=== PATIENT | male | born 1960 | race African-American/Black ===

== ENCOUNTER 2020-12-29 13:39 | Inpatient (IN) | payer SELFPAY ==
[~2020-12-29] VITALS: Ht 185.4 cm; Wt 72.6 kg
[2020-12-29] MEDS ORDERED: TETANUS, DIPHTHERIA, PERTUSSIS VAC/PF 0.5ML (>7YR OLD) IM ONE (14:45)
[2020-12-29 15:34] LABS: HEMATOCRIT. 39.3 % (42.0-52.0); HEMOGLOBIN. 12.9 g/dL (14.0-18.0); MEAN CORPUSCULAR HEMOGLOBIN 31.7 pg (28.0-32.0); MEAN CORPUSCULAR VOLUME 96.7 fL (80.0-94.0); MEAN PLATELET VOLUME 8.7 fl (7.4-10.4); PLATELET 155 x1000/uL (130-400); RED BLOOD CELL COUNT 4.07 mill/uL (4.7-6.1); RED CELL DISTRIBUTION WIDTH 13.7 % (11.6-14.6)
[2020-12-29 15:37] LABS: CHLORIDE 109 mEq/L (98-107)
[2020-12-29 17:45] LABS: PLATELET ESTIMATE NORMAL
[2020-12-29 20:49] LABS: *BENZODIAZEPINES SCREEN URINE NEGATIVE (NEGATIVE)
[2020-12-29 20:50] LABS: *AMPHETAMINES SCREEN URINE NEGATIVE (NEGATIVE); *BARBITURATES SCREEN URINE NEGATIVE (NEGATIVE); *COCAINE SCREEN URINE PRESUMTIVE POSITIVE (NEGATIVE); CANNABINOID URINE SCREEN PRESUMTIVE POSITIVE (NEGATIVE); METHADONE URINE SCREEN NEGATIVE (NEGATIVE); OPIATES URINE SCREEN NEGATIVE (NEGATIVE); PHENCYCLIDINE URINE SCREEN NEGATIVE (NEGATIVE)
[2020-12-30 08:30] VITALS: BP 132/80
[2020-12-30] MEDS ORDERED: ONDANSETRON HCL 4MG/2ML INJ IV PRN (09:30)
[2020-12-30] MEDS ORDERED: IPRATROPIUM/ALBUTEROL 0.5-3(2.5)MG/3ML NEB HHN PRN (09:30)
[2020-12-30] MEDS ORDERED: HYDROCODONE/ACETAMINOPHEN 5/325MG TABLET PO PRN (09:30)
[2020-12-30] MEDS ORDERED: MAGNESIUM/ALUMINUM HYDROXIDE/SIMETHICONE 30ML UDC PO PRN (09:30)
[2020-12-30] MEDS ORDERED: DEXTROSE 50% WATER 50ML SYRINGE IV PRN ×2 (09:30)
[2020-12-30] MEDS ORDERED: CLONIDINE 0.1MG TABLET PO PRN (09:30)
[2020-12-30] MEDS ORDERED: ACETAMINOPHEN 325MG TABLET PO PRN (09:30)
[2020-12-30] MEDS ORDERED: DOCUSATE SODIUM 100MG CAPSULE PO PRN (09:30)
[2020-12-30] MEDS: ENOXAPARIN 40MG/0.4ML SYR SUBCUT SCH (10:30)
[2020-12-30 11:21] VITALS: BP 142/79
[2020-12-30 12:00] VITALS: BP 128/78
[2020-12-30] MEDS: BLOOD SUGAR DIAGNOSTIC STRIP TEST SCH ×2 (12:20→21:25)
[2020-12-30] MEDS: INSULIN LISPRO 100 UNITS/ML SUBCUT SCH ×2 (12:50→21:00)
[2020-12-30 16:00] VITALS: BP 130/84
[2020-12-30 20:00] VITALS: BP_SYST 137
[2020-12-31] VITALS: BP 121/73
[2020-12-31 04:00] VITALS: BP 140/78
[2020-12-31] MEDS: BLOOD SUGAR DIAGNOSTIC STRIP TEST SCH ×3 (05:49→16:37)
[2020-12-31 06:47] LABS: BASOPHILS % 0.9 % (0.0-2.0); EOSINOPHILS % 2.4 % (0.0-5.0); HEMATOCRIT. 42.5 % (42.0-52.0); HEMOGLOBIN. 14.4 g/dL (14.0-18.0); LYMPHOCYTES % 22.2 % (20.0-50.0); MEAN CORPUSCULAR HEMOGLOBIN 32.2 pg (28.0-32.0); MEAN PLATELET VOLUME 9.6 fl (7.4-10.4); MONOCYTES % 14.7 % (2.0-8.0); NEUTROPHILS % 59.8 % (40.0-76.0); PLATELET 191 x1000/uL (130-400); RED BLOOD CELL COUNT 4.47 mill/uL (4.7-6.1); RED CELL DISTRIBUTION WIDTH 13.5 % (11.6-14.6)
[2020-12-31 07:00] LABS: CHLORIDE 107 mEq/L (98-107)
[2020-12-31 07:06] LABS: PHOSPHORUS 3.5 mg/dL (2.5-4.9)
[2020-12-31 07:08] LABS: LDL CHOLESTEROL 88 mg/dL (5-100)
[2020-12-31 07:16] LABS: HDL CHOLESTEROL 52 mg/dL (40-59)
[2020-12-31] MEDS ORDERED: OMEPRAZOLE 20MG CAPSULE EXTENDED RELEASE PO SCH (07:20)
[2020-12-31] MEDS: INSULIN LISPRO 100 UNITS/ML SUBCUT SCH ×3 (07:50→16:37)
[2020-12-31 08:00] VITALS: BP 117/85
[2020-12-31] MEDS: ENOXAPARIN 40MG/0.4ML SYR SUBCUT SCH (10:30)
[2020-12-31 12:00] VITALS: BP 121/86
[2020-12-31 16:00] VITALS: BP 128/87
[2020-12-31 17:49] VITALS: BP 128/87
== END 2020-12-31 20:10 | disposition home or self-care (01) | DRG 48 ==
LOC: ER 13:53 → 6WST 22:34 → EDBEDREQTM 22:35 → EDBEDREQ 22:35 → ENRESERV 12-30 07:32
PROVIDERS: ADMIT Internal Medicine; ATTEND Internal Medicine
DX: G90.8 Other disorders of autonomic nervous system (principal); D64.9 Anemia, unspecified; F12.90 Cannabis use, unspecified, uncomplicated; F14.90 Cocaine use, unspecified, uncomplicated; S01.412A Laceration without foreign body of left cheek and temporomandibular area, initial encounter; W18.39XA Other fall on same level, initial encounter; R73.9 Hyperglycemia, unspecified; I10 Essential (primary) hypertension; S01.511A Laceration without foreign body of lip, initial encounter; Z17.0 Estrogen receptor positive status [ER+]; Z56.0 Unemployment, unspecified; Z71.51 Drug abuse counseling and surveillance of drug abuser; Y93.89 Activity, other specified; Y92.89 Other specified places as the place of occurrence of the external cause; Y99.8 Other external cause status
CPT/HCPCS: 36415; 70486; 70551; 71045; 80048; 80061; 80305; 80320; 82962; 83036; 83735; 84100; 84443; 84484; 85025; 90715; 93005; 93306; 93880; 93970; 97162; 97165; 99285; J1650; G0480

== ENCOUNTER 2025-01-15 17:17 | Inpatient (IN) | payer MEDICAID ==
[~2025-01-15] VITALS: Ht 188 cm; Wt 76.7 kg
[2025-01-15 18:37] LABS: BASOPHILS % 0.7 % (0.0-2.0); EOSINOPHILS % 2.7 % (0.0-5.0); HEMATOCRIT. 35.1 % (42.0-52.0); HEMOGLOBIN. 11.6 g/dL (14.0-18.0); LYMPHOCYTES % 19.6 % (20.0-50.0); MEAN CORPUSCULAR HEMOGLOBIN 31.5 pg (28.0-32.0); MEAN CORPUSCULAR HGB CONC 33.2 g/dL (31.0-37.0); MEAN PLATELET VOLUME 8.9 fl (7.4-10.4); PLATELET 247 x1000/uL (130-400); RED BLOOD CELL COUNT 3.69 mill/uL (4.7-6.1); RED CELL DISTRIBUTION WIDTH 13.2 % (11.6-14.6)
[2025-01-15 18:45] LABS: CHLORIDE 104 mEq/L (98-107); POTASSIUM 3.8 mEq/L (3.5-5.1); SODIUM 139 mEq/L (136-145)
[2025-01-15 18:46] LABS: CALCIUM 8.7 mg/dL (8.7-10.4); CARBON DIOXIDE 29 mEq/L (21-32); PROTHROMBIN TIME 10.5 sec (9.6-11.0)
[2025-01-15 18:51] LABS: GLUCOSE 113 mg/dL (70-105); UREA NITROGEN BLOOD 12 mg/dL (9-23)
[2025-01-15] MEDS: MORPHINE SULFATE 4 MG/ML INJ (FOR IV/IM USE) IV ONE (19:11)
[2025-01-15] MEDS: PIPERACILLIN/TAZO 3.375G/50ML 50 ML IV ONE (19:12)
[2025-01-15] MEDS: SODIUM CHLORIDE 0.9% (SEPSIS BOLUS) IV ONE (19:12)
[2025-01-15] MEDS: VANCOMYCIN 1G PREMIX 200 ML IV ONE (19:52)
[2025-01-15] MEDS ORDERED: ONDANSETRON HCL 4MG/2ML INJ IV PRN (22:00)
[2025-01-15] MEDS ORDERED: DEXTROSE 50% WATER 50ML SYRINGE IV PRN (22:00)
[2025-01-15] MEDS ORDERED: ACETAMINOPHEN 325MG TABLET PO PRN (22:00)
[2025-01-16] VITALS: BP 127/79; PULSE 69; RESP 20; TEMP 36.2; O2SAT 99
[2025-01-16] MEDS ORDERED: VANCOMYCIN 1G PREMIX 200 ML IV SCH
[2025-01-16 00:48] LABS: IRON 26 ug/dL (65-175)
[2025-01-16 00:50] LABS: ALANINE AMINOTRANSFERASE 12 IU/L (10-49); ALBUMIN 3.6 g/dL (3.2-4.8); ASPARTATE AMINOTRANSFERASE 17 IU/L (<34); BILIRUBIN DIRECT < 0.1 mg/dL (<=3.0); BILIRUBIN TOTAL 0.3 mg/dL (0.1-1.0); TOTAL IRON BINDING CAPACITY 347 ug/dl (250-425)
[2025-01-16 00:53] LABS: FERRITIN 82 ng/mL (22-322); VITAMIN B12 SERUM 479 pg/mL (211-911)
[2025-01-16 00:58] VITALS: BP 127/79; PULSE 69; RESP 20; TEMP 36.3
[2025-01-16] MEDS: PIPERACILLIN/TAZO 3.375G/50ML 50 ML IV SCH (02:20)
[2025-01-16] MEDS: VANCOMYCIN 1G PREMIX 200 ML IV SCH (02:20)
[2025-01-16 04:00] VITALS: BP 53/79; PULSE 73; RESP 20; TEMP 36.2; O2SAT 99
[2025-01-16 07:54] LABS: CLARITY URINE CLEAR (CLEAR); COLOR URINE YELLOW (YELLOW); GLUCOSE URINE NEGATIVE (NEGATIVE); KETONES URINE NEGATIVE (NEGATIVE); LEUKOCYTE ESTERASE URINE TRACE (NEGATIVE); NITRITE URINE NEGATIVE (NEGATIVE); OCCULT BLOOD URINE 1+ (NEGATIVE); PROTEIN URINE NEGATIVE (NEGATIVE); SPECIFIC GRAVITY URINE 1.007 (1.005-1.030)
[2025-01-16 08:04] LABS: BACTERIA URINE FEW; SQUAMOUS EPITHELIAL CELL URINE NONE SEEN /lpf (RARE/1+); WBC URINE 0-2 /hpf (0-2); YEAST URINE NONE SEEN
[2025-01-16 08:16] LABS: *AMPHETAMINES SCREEN URINE NEGATIVE (NEGATIVE); *BARBITURATES SCREEN URINE NEGATIVE (NEGATIVE); *BENZODIAZEPINES SCREEN URINE NEGATIVE (NEGATIVE)
[2025-01-16 08:17] LABS: *COCAINE SCREEN URINE PRESUMPTIVE POSITIVE (NEGATIVE); CANNABINOID URINE SCREEN NEGATIVE (NEGATIVE); ECSTASY MDMA SCREEN URINE NEGATIVE (NEGATIVE); METHADONE URINE SCREEN NEGATIVE (NEGATIVE); OPIATES URINE SCREEN PRESUMPTIVE POSITIVE (NEGATIVE); PHENCYCLIDINE URINE SCREEN PRESUMTIVE POSITIVE (NEGATIVE)
[2025-01-16 09:21] LABS: BASOPHILS % 0.8 % (0.0-2.0); EOSINOPHILS % 2.8 % (0.0-5.0); HEMATOCRIT. 35.9 % (42.0-52.0); HEMOGLOBIN. 11.9 g/dL (14.0-18.0); LYMPHOCYTES % 13.1 % (20.0-50.0); MEAN CORPUSCULAR HEMOGLOBIN 31.7 pg (28.0-32.0); MEAN CORPUSCULAR HGB CONC 33.1 g/dL (31.0-37.0); MEAN CORPUSCULAR VOLUME 95.8 fL (80.0-94.0); MEAN PLATELET VOLUME 9.6 fl (7.4-10.4); MONOCYTES % 10.7 % (2.0-8.0); NEUTROPHILS % 72.6 % (40.0-76.0); PLATELET 253 x1000/uL (130-400); RED BLOOD CELL COUNT 3.74 mill/uL (4.7-6.1); RED CELL DISTRIBUTION WIDTH 13.2 % (11.6-14.6); WHITE BLOOD COUNT 8.6 x1000/uL (4.5-11.0)
[2025-01-16] MEDS: PANTOPRAZOLE SODIUM 40 MG/VIAL IV SCH (09:23)
[2025-01-16 09:39] LABS: CARBON DIOXIDE 30 mEq/L (21-32); CHLORIDE 104 mEq/L (98-107); POTASSIUM 4.1 mEq/L (3.5-5.1); SODIUM 140 mEq/L (136-145)
[2025-01-16 09:40] LABS: CALCIUM 8.7 mg/dL (8.7-10.4)
[2025-01-16 09:44] LABS: GLUCOSE 114 mg/dL (70-105)
[2025-01-16 09:45] LABS: TRIGLYCERIDE 63 mg/dL (0-150); UREA NITROGEN BLOOD 8 mg/dL (9-23)
[2025-01-16 09:46] LABS: ALBUMIN 3.6 g/dL (3.2-4.8); CHOLESTEROL 136 mg/dL (<200); LDL CHOLESTEROL 90 mg/dL (5-100)
[2025-01-16 09:47] LABS: HDL CHOLESTEROL 32 mg/dL (>55)
[2025-01-16 09:51] LABS: THYROID STIMULATING HORMONE 0.89 uIU/mL (0.55-4.78)
[2025-01-16] MEDS ORDERED: LIDOCAINE HCL/EPINEPHRINE 1%-EPI 1:100,000 20ML VIAL INFIL SCH (11:15)
[2025-01-16] MEDS: SODIUM HYPOCHLORITE 0.125% 473ML SOLUTION TOP SCH (14:48)
[2025-01-16 20:00] VITALS: BP 128/80; PULSE 77; RESP 20; TEMP 36.4; O2SAT 96
[2025-01-17] VITALS: BP 117/54; PULSE 72; RESP 20; TEMP 36.4
[2025-01-17 04:00] VITALS: BP 132/73; PULSE 59; RESP 20; TEMP 36.6; O2SAT 95
[2025-01-17 07:14] LABS: CARBON DIOXIDE 28 mEq/L (21-32); CHLORIDE 106 mEq/L (98-107); POTASSIUM 3.9 mEq/L (3.5-5.1); SODIUM 141 mEq/L (136-145)
[2025-01-17 07:19] LABS: CREATININE 0.9 mg/dL (0.6-1.3); GLUCOSE 103 mg/dL (70-105)
[2025-01-17 07:20] LABS: UREA NITROGEN BLOOD 10 mg/dL (9-23)
[2025-01-17 08:00] VITALS: BP 135/72; PULSE 59; RESP 19; TEMP 36.4; O2SAT 96
[2025-01-17] MEDS: ENOXAPARIN 40MG/0.4ML SYR SUBCUT SCH (10:34)
[2025-01-17] MEDS: FERROUS SULFATE 300MG/5ML UDC PO SCH (10:34)
[2025-01-17 12:00] VITALS: BP 120/79; PULSE 83; RESP 20; TEMP 36.5; O2SAT 100
[2025-01-17 16:00] VITALS: BP 118/77; PULSE 68; RESP 18; TEMP 36.5; O2SAT 97
[2025-01-17] MEDS: ACETAMINOPHEN 325MG TABLET PO PRN (16:00)
[2025-01-17] MEDS: VANCOMYCIN 1.25GM/250ML IV SCH (18:30)
[2025-01-18 08:00] VITALS: BP 154/78; PULSE 59; RESP 18; TEMP 36.4; O2SAT 99
[2025-01-18 12:00] VITALS: BP 110/68; PULSE 113; RESP 20; TEMP 36.6; O2SAT 98
[2025-01-18 16:00] VITALS: BP 120/67; PULSE 100; RESP 20; TEMP 36.3; O2SAT 100
[2025-01-18] MEDS ORDERED: SULF1TAB48 PO (17:30)
[2025-01-19 03:17] LABS: CHLORIDE 105 mEq/L (98-107); POTASSIUM 3.6 mEq/L (3.5-5.1); SODIUM 139 mEq/L (136-145)
[2025-01-19 03:18] LABS: CARBON DIOXIDE 29 mEq/L (21-32)
[2025-01-19 03:19] LABS: CALCIUM 8.7 mg/dL (8.7-10.4)
[2025-01-19 03:23] LABS: CREATININE 1.2 mg/dL (0.6-1.3); GLUCOSE 113 mg/dL (70-105); UREA NITROGEN BLOOD 20 mg/dL (9-23)
[2025-01-19 04:00] VITALS: BP 130/72; PULSE 73; RESP 20; O2SAT 98
[2025-01-19 08:00] VITALS: BP 117/66; PULSE 76; RESP 18; TEMP 36.4; O2SAT 100
[2025-01-19 16:00] VITALS: BP 105/50; PULSE 69; RESP 20; TEMP 36.1; O2SAT 98
[2025-01-19] MEDS: VANCOMYCIN 1GM PMX (XELLIA) 200 ML IV SCH (18:00)
[2025-01-19 20:00] VITALS: BP 123/65; PULSE 62; RESP 20; TEMP 37.1; O2SAT 99
[2025-01-19] MEDS: SULFAMETHOXAZOLE/TRIMETHOPRIM 800/160MG TABLET PO SCH (23:00)
[2025-01-19 23:19] VITALS: BP 123/65; PULSE 62; TEMP 98.7; O2SAT 99
[2025-01-20] VITALS: BP 108/59; PULSE 87; RESP 19; TEMP 37; O2SAT 98
[2025-01-20] MEDS ORDERED: VANCOMYCIN 1G PREMIX 200 ML IV SCH (06:00)
[2025-01-20 08:00] VITALS: BP 115/65; PULSE 82; RESP 20; TEMP 36.7; O2SAT 98
[2025-01-20] MEDS: FAMOTIDINE 20MG TABLET PO SCH (09:44)
[2025-01-20 12:00] VITALS: BP 126/76; PULSE 76; RESP 18; TEMP 36.7; O2SAT 97
== END 2025-01-20 14:40 | disposition home or self-care (01) | DRG 720 ==
LOC: ER 17:17 → 6EST 20:50 → EDBEDREQTM 20:54 → EDBEDREQ 20:54 → ENRESERV 21:17
PROVIDERS: ADMIT Internal Medicine; ATTEND Internal Medicine
PROC: 0JB90ZZ Excision of Buttock Subcutaneous Tissue and Fascia, Open Approach (ICD-10-PCS; principal; 2025-01-16)
DX: A41.9 Sepsis, unspecified organism (principal); F14.90 Cocaine use, unspecified, uncomplicated; L02.31 Cutaneous abscess of buttock; F19.10 Other psychoactive substance abuse, uncomplicated; L03.317 Cellulitis of buttock; W57.XXXA Bitten or stung by nonvenomous insect and other nonvenomous arthropods, initial encounter; Z59.00 Homelessness unspecified; Z87.891 Personal history of nicotine dependence; Z79.899 Other long term (current) drug therapy; Y92.89 Other specified places as the place of occurrence of the external cause; Y93.89 Activity, other specified; Y99.8 Other external cause status
CPT/HCPCS: 36415; 71045; 74176; 80048; 80061; 80076; 80202; 80305; 81003; 82040; 82607; 82728; 82746; 83036; 83540; 83550; 83605; 84145; 84439; 84443; 85025; 87070; 87077; 87186; 96365; 96367; 96375; 99285; J1650; J2004; J2270; J2470; J2543; J3370; J7030

== ENCOUNTER 2025-03-31 08:54 | Inpatient (IN) | payer MEDICAID ==
[~2025-03-31] VITALS: Ht 188 cm; Wt 76.7 kg
[~2025-03-31 08:54] MED LIST: SULF1TAB48 PO
[2025-03-31 08:57] VITALS: O2SAT 99
[2025-03-31] MEDS ORDERED: PANTOPRAZOLE 80 MG in SODIUM CHLORIDE 0.9% 100 ML IV ONE (09:15)
[2025-03-31] MEDS: SODIUM CHLORIDE 0.9% 1,000 ML IV ONE (09:35)
[2025-03-31] MEDS: METOCLOPRAMIDE HCL 10MG/2ML VIAL IV ONE (09:35)
[2025-03-31 09:45] LABS: BASOPHILS % 0.7 % (0.0-2.0); EOSINOPHILS % 0.7 % (0.0-5.0); HEMATOCRIT. 32.9 % (42.0-52.0); HEMOGLOBIN. 11.1 g/dL (14.0-18.0); LYMPHOCYTES % 12.1 % (20.0-50.0); MEAN PLATELET VOLUME 8.7 fl (7.4-10.4); MONOCYTES % 8.8 % (2.0-8.0); NEUTROPHILS % 77.7 % (40.0-76.0); PLATELET 258 x1000/uL (130-400); RED BLOOD CELL COUNT 3.55 mill/uL (4.7-6.1); RED CELL DISTRIBUTION WIDTH 14.2 % (11.6-14.6)
[2025-03-31 10:02] LABS: CREATININE 1.0 mg/dL (0.6-1.3)
[2025-03-31 10:03] LABS: TROPONIN I HIGH SENSITIVITY 5 ng/L (3.0-53); UREA NITROGEN BLOOD 10 mg/dL (9-23)
[2025-03-31 10:04] LABS: ASPARTATE AMINOTRANSFERASE 18 IU/L (<34); BILIRUBIN DIRECT 0.1 mg/dL (<=3.0)
[2025-03-31 10:05] LABS: BILIRUBIN TOTAL 0.5 mg/dL (0.1-1.0); PROTEIN TOTAL 6.7 g/dL (6.0-8.3)
[2025-03-31 12:03] LABS: CREATININE 0.9 mg/dL (0.6-1.3); UREA NITROGEN BLOOD 8 mg/dL (9-23)
[2025-03-31 12:04] LABS: TROPONIN I HIGH SENSITIVITY 4 ng/L (3.0-53)
[2025-03-31 12:43] LABS: CLARITY URINE CLEAR (CLEAR); COLOR URINE DARK YELLOW (YELLOW); GLUCOSE URINE NEGATIVE (NEGATIVE); KETONES URINE NEGATIVE (NEGATIVE); LEUKOCYTE ESTERASE URINE TRACE (NEGATIVE); NITRITE URINE NEGATIVE (NEGATIVE); OCCULT BLOOD URINE 2+ (NEGATIVE); PH URINE 7.0 (4.5-8.0); PROTEIN URINE NEGATIVE (NEGATIVE); SPECIFIC GRAVITY URINE 1.013 (1.005-1.030); UROBILINOGEN URINE 2.0 E.U./dL (0.2-1.0)
[2025-03-31 13:00] LABS: BACTERIA URINE NONE SEEN; RBC URINE 25-50 /hpf (0-2); SQUAMOUS EPITHELIAL CELL URINE RARE /lpf (RARE/1+); YEAST URINE NONE SEEN
[2025-03-31 16:40] VITALS: BP 121/54; PULSE 57; RESP 18; TEMP 36.8072
[2025-03-31] MEDS ORDERED: DOCUSATE SODIUM 100MG CAPSULE PO PRN (17:45)
[2025-03-31] MEDS ORDERED: IPRATROPIUM/ALBUTEROL 0.5-3(2.5)MG/3ML NEB HHN PRN (17:45)
[2025-03-31] MEDS ORDERED: ONDANSETRON HCL 4MG/2ML INJ IV PRN (17:45)
[2025-03-31] MEDS ORDERED: ACETAMINOPHEN 325MG TABLET PO PRN ×2 (17:45)
[2025-03-31] MEDS ORDERED: CLONIDINE 0.1MG TABLET PO PRN (17:45)
[2025-03-31] MEDS: FINASTERIDE 5MG TABLET PO SCH (18:36)
[2025-03-31] MEDS: TAMSULOSIN HCL 0.4MG SR CAPSULE PO SCH (18:36)
[2025-03-31 20:00] VITALS: BP 133/64; PULSE 63; RESP 19; TEMP 36.7; O2SAT 100
[2025-03-31 20:51] LABS: *AMPHETAMINES SCREEN URINE NEGATIVE (NEGATIVE); *BARBITURATES SCREEN URINE NEGATIVE (NEGATIVE); *BENZODIAZEPINES SCREEN URINE NEGATIVE (NEGATIVE); *COCAINE SCREEN URINE PRESUMPTIVE POSITIVE (NEGATIVE); METHADONE URINE SCREEN NEGATIVE (NEGATIVE)
[2025-03-31 20:52] LABS: CANNABINOID URINE SCREEN NEGATIVE (NEGATIVE); ECSTASY MDMA SCREEN URINE NEGATIVE (NEGATIVE); OPIATES URINE SCREEN NEGATIVE (NEGATIVE); PHENCYCLIDINE URINE SCREEN PRESUMTIVE POSITIVE (NEGATIVE)
[2025-03-31] MEDS ORDERED: IOHEXOL-300 100 ML BOTTLE ONE (23:31)
[2025-04-01] VITALS: BP 154/83; PULSE 74; RESP 18; TEMP 36.6; O2SAT 96
[2025-04-01 02:00] VITALS: BP 119/64; PULSE 72; RESP 19; TEMP 37.2; O2SAT 97
[2025-04-01 04:00] VITALS: BP 119/64; PULSE 72; RESP 19; TEMP 37.2; O2SAT 97
[2025-04-01 07:51] LABS: BASOPHILS % 0.8 % (0.0-2.0); EOSINOPHILS % 0.5 % (0.0-5.0); HEMATOCRIT. 37.7 % (42.0-52.0); HEMOGLOBIN. 12.3 g/dL (14.0-18.0); LYMPHOCYTES % 15.1 % (20.0-50.0); MEAN PLATELET VOLUME 9.6 fl (7.4-10.4); MONOCYTES % 7.1 % (2.0-8.0); NEUTROPHILS % 76.5 % (40.0-76.0); PLATELET 265 x1000/uL (130-400); RED BLOOD CELL COUNT 3.97 mill/uL (4.7-6.1); RED CELL DISTRIBUTION WIDTH 14.1 % (11.6-14.6)
[2025-04-01 08:00] VITALS: BP 138/85; PULSE 84; RESP 20; TEMP 37; O2SAT 100
[2025-04-01 08:01] LABS: CREATININE 0.8 mg/dL (0.6-1.3); UREA NITROGEN BLOOD 10 mg/dL (9-23)
[2025-04-01 08:03] LABS: ASPARTATE AMINOTRANSFERASE 18 IU/L (<34); BILIRUBIN TOTAL 0.4 mg/dL (0.1-1.0); PROTEIN TOTAL 6.3 g/dL (6.0-8.3)
[2025-04-01] MEDS ORDERED: VISCOUS LIDOCAINE 2% 15 ML UDC MM PRN (09:45)
[2025-04-01 12:00] VITALS: BP 133/74; PULSE 85; RESP 20; TEMP 36.8; O2SAT 98
[2025-04-01] MEDS: LIDOCAINE 2% 6ML GLYDO MM NR (12:40)
[2025-04-01 16:00] VITALS: BP 135/76; PULSE 85; RESP 20; TEMP 36.8; O2SAT 100
[2025-04-02] VITALS: BP 150/88; PULSE 79; RESP 18; TEMP 36.8; O2SAT 100
[2025-04-02 08:00] VITALS: BP 125/75; PULSE 73; RESP 18; TEMP 36.4; O2SAT 100
[2025-04-02] MEDS ORDERED: FINA1TAB14 MT (11:48)
[2025-04-02] MEDS ORDERED: TAMS-54 MT (11:48)
[2025-04-02 12:00] VITALS: BP 117/67; PULSE 100; RESP 16; TEMP 36.2; O2SAT 100
[2025-04-02 16:00] VITALS: BP 124/80; PULSE 91; RESP 18; TEMP 36.3; O2SAT 100
[2025-04-02 18:51] LABS: BASOPHILS % 1.4 % (0.0-2.0); EOSINOPHILS % 0.6 % (0.0-5.0); HEMATOCRIT. 36.3 % (42.0-52.0); HEMOGLOBIN. 12.1 g/dL (14.0-18.0); LYMPHOCYTES % 13.9 % (20.0-50.0); MEAN PLATELET VOLUME 9.1 fl (7.4-10.4); MONOCYTES % 7.3 % (2.0-8.0); NEUTROPHILS % 76.8 % (40.0-76.0); PLATELET 329 x1000/uL (130-400); RED BLOOD CELL COUNT 3.87 mill/uL (4.7-6.1); RED CELL DISTRIBUTION WIDTH 13.8 % (11.6-14.6)
[2025-04-02 19:14] LABS: CREATININE 0.8 mg/dL (0.6-1.3); UREA NITROGEN BLOOD 11 mg/dL (9-23)
[2025-04-02 20:00] VITALS: BP 126/85; PULSE 103; RESP 20; TEMP 36.5; O2SAT 98
[2025-04-03] VITALS: BP 131/79; PULSE 101; RESP 20; TEMP 36.4; O2SAT 97
[2025-04-03 04:00] VITALS: BP 128/76; PULSE 100; RESP 20; TEMP 36.2; O2SAT 98
[2025-04-03 08:00] VITALS: BP 135/88; PULSE 83; RESP 18; TEMP 36.3; O2SAT 100
[2025-04-03 12:00] VITALS: BP 125/92; PULSE 89; RESP 19; TEMP 36.5; O2SAT 100
[2025-04-03 15:22] VITALS: BP 125/92; PULSE 89; RESP 19; TEMP 97.7
[2025-04-03 16:00] VITALS: BP 128/86; PULSE 78; RESP 18; TEMP 36.3; O2SAT 100
== END 2025-04-03 17:05 | disposition home or self-care (01) | DRG 465 ==
LOC: ER 08:54 → EDBEDREQTM 15:01 → EDBEDREQ 15:01 → ENRESERV 15:20 → 6EST 16:11
PROVIDERS: ADMIT Internal Medicine; ATTEND Internal Medicine
DX: N13.30 Unspecified hydronephrosis (principal); K76.89 Other specified diseases of liver; D64.9 Anemia, unspecified; N32.89 Other specified disorders of bladder; F14.90 Cocaine use, unspecified, uncomplicated; Z59.00 Homelessness unspecified; Z79.899 Other long term (current) drug therapy
CPT/HCPCS: 36415; 71045; 74177; 76770; 80048; 80053; 80076; 80305; 81003; 83735; 84484; 85025; 99285; A4606; J2470; J2765; J7030; J7050; Q9967